=== PATIENT | female | born 1975 | race Hispanic/Latino ===

== ENCOUNTER 2019-10-12 13:32 | Emergency (ER) | payer MEDICAID ==
[2019-10-12 17:16] LABS: BASOPHILS % (AUTO) 0.5 % (0.0-5.0); EOSINOPHILS % (AUTO) 0.6 % (0.0-8.0); LYMPHOCYTES % (AUTO) 17.8 % (21.0-51.0); MEAN CORPUSCULAR HEMOGLOBIN 27.8 pg (27.0-33.0); MEAN CORPUSCULAR HGB CONC 32.6 g/dL (32.0-36.0); MEAN CORPUSCULAR VOLUME 85.3 fL (79-99); MONOCYTES % (AUTO) 5.7 % (3.0-13.0); NEUTROPHILS % (AUTO) 74.9 % (40.0-77.0); PLATELET COUNT (AUTO) 268 K/uL (130-400); RED BLOOD CELL COUNT(AUTO) 5.04 MIL/uL (4.00-5.50); WHITE BLOOD COUNT (AUTO) 8.8 K/uL (4.8-10.8)
[2019-10-12] MEDS ORDERED: ONDANSETRON HCL 4 MG/2 ML VIAL ONE (17:23)
[2019-10-12] MEDS ORDERED: KETOROLAC TROMETHAMINE 30MG/ML ONE (17:23)
[2019-10-12] MEDS ORDERED: SODIUM CHLORIDE 0.9% 1000ML 1,000 ML IV ONE (17:24)
[2019-10-12 17:43] LABS: CREATININE 0.6 mg/dL (0.5-1.5); POTASSIUM 4.5 mmol/L (3.5-5.1)
[2019-10-12 17:48] LABS: ALBUMIN 3.1 g/dL (3.5-5.0); BILIRUBIN,TOTAL 0.6 mg/dL (0.2-1.0); TOTAL PROTEIN, SERUM 8.2 g/dL (6.0-8.3)
[2019-10-12 17:57] LABS: APPEARANCE,URINE Clear (CLEAR); BILIRUBIN,URINE Negative (NEGATIVE); COLOR,URINE Yellow (YELLOW); GLUCOSE, URINE (UA) >=1000 mg/dL (NEGATIVE); KETONES,URINE >=160 mg/dL (NEGATIVE); LEUKOCYTE ESTERASE ,URINE Trace (NEGATIVE); NITRATE,URINE Negative (NEGATIVE); OCCULT BLOOD,URINE Negative (NEGATIVE); PROTEIN,URINE Negative (NEGATIVE)
[2019-10-12 17:59] LABS: HCG,QUAL RESULT NEGATIVE (NEGATIVE)
[2019-10-12 18:06] LABS: YEAST,URINE BUDDING Few /HPF (None Seen)
[2019-10-12 18:07] LABS: BACTERIA,URINE Few /HPF (None Seen); RBC,URINE None Seen /HPF (0-1)
[2019-10-12] MEDS ORDERED: CEFTRIAXONE SODIUM 1 GM ONE (18:30)
== END 2019-10-12 18:58 | disposition home or self-care (01) ==
LOC: EDH 13:32
DX: J32.9 Chronic sinusitis, unspecified (principal); E11.9 Type 2 diabetes mellitus without complications; I10 Essential (primary) hypertension; Z88.6 Allergy status to analgesic agent; Z98.51 Tubal ligation status; Z90.49 Acquired absence of other specified parts of digestive tract
CPT/HCPCS: 36415; 70450; 80053; 81001; 81025; 85025; 96374; 96375; 99284; J0696; J1885; J2405; J7030

== ENCOUNTER → 2021-05-26 | Outpatient (CLI) | payer MEDICAID | END | disposition home or self-care (01) | LOC: RAH 06:51 | PROVIDERS: ATTEND Internal Medicine Gastroenterology | DX: R14.0 Abdominal distension (gaseous) (principal); R68.81 Early satiety | CPT/HCPCS: 78264; A9541 ==

== ENCOUNTER 2021-09-17 10:56 | Emergency (ER) | payer MEDICAID ==
[~2021-09-17] VITALS: Ht 160 cm; Wt 106.1 kg
[2021-09-17 12:45] LABS: BASOPHILS % (AUTO) 0.7 % (0.0-5.0); EOSINOPHILS % (AUTO) 2.2 % (0.0-8.0); HEMATOCRIT 46.8 % (36-48); MEAN CORPUSCULAR HEMOGLOBIN 28.5 pg (27.0-33.0); MEAN CORPUSCULAR HGB CONC 32.7 g/dL (32.0-36.0); MEAN CORPUSCULAR VOLUME 87.2 fL (79-99); MONOCYTES % (AUTO) 5.7 % (3.0-13.0); PLATELET COUNT (AUTO) 190 K/uL (130-400); RED BLOOD CELL COUNT(AUTO) 5.37 MIL/uL (4.00-5.50); RED CELL DISTRIBUTION WIDTH 13.8 % (11.0-15.5); WHITE BLOOD COUNT (AUTO) 7.2 K/uL (4.8-10.8)
[2021-09-17 13:39] LABS: ALBUMIN 3.6 g/dL (3.5-5.0); BILIRUBIN,TOTAL 0.4 mg/dL (0.2-1.0); CREATININE 0.5 mg/dL (0.5-1.5); POTASSIUM 4.4 mmol/L (3.5-5.1); TOTAL PROTEIN, SERUM 7.7 g/dL (6.0-8.3)
[2021-09-17] MEDS ORDERED: DICYCLOMINE HCL 10 MG/5 ML ML PO ONE (14:00)
[2021-09-17] MEDS ORDERED: LIDOCAINE HCL 2% VISCOUS 15 ML UDCUP PO ONE (14:00)
[2021-09-17] MEDS ORDERED: MAG/ALUM/SIMETH 30 ML UDCUP PO ONE (14:00)
[2021-09-17] MEDS ORDERED: ESOM20CA60 PO (14:56)
[2021-09-17 15:02] VITALS: BP 134/70
== END 2021-09-17 15:30 | disposition home or self-care (01) ==
LOC: EDH 10:56
DX: K29.70 Gastritis, unspecified, without bleeding (principal); I11.0 Hypertensive heart disease with heart failure; E11.9 Type 2 diabetes mellitus without complications; E78.00 Pure hypercholesterolemia, unspecified; Z90.49 Acquired absence of other specified parts of digestive tract; Z98.51 Tubal ligation status
CPT/HCPCS: 36415; 80053; 83690; 84484; 85025

== ENCOUNTER 2022-05-01 17:17 | Emergency (ER) | payer MEDICAID ==
[~2022-05-01] VITALS: Ht 160 cm; Wt 109.3 kg
[~2022-05-01 17:17] MED LIST: ESOM20CA60 PO
[2022-05-01 17:46] LABS: BASOPHILS % (AUTO) 0.7 % (0.0-5.0); EOSINOPHILS % (AUTO) 1.6 % (0.0-8.0); HEMATOCRIT 45.6 % (36-48); LYMPHOCYTES % (AUTO) 33.2 % (21.0-51.0); MEAN CORPUSCULAR HEMOGLOBIN 28.7 pg (27.0-33.0); MEAN CORPUSCULAR HGB CONC 33.8 g/dL (32.0-36.0); MEAN CORPUSCULAR VOLUME 85.1 fL (79-99); MONOCYTES % (AUTO) 6.3 % (3.0-13.0); NEUTROPHILS % (AUTO) 57.9 % (40.0-77.0); PLATELET COUNT (AUTO) 200 K/uL (130-400); RED BLOOD CELL COUNT(AUTO) 5.36 MIL/uL (4.00-5.50); RED CELL DISTRIBUTION WIDTH 13.5 % (11.0-15.5); WHITE BLOOD COUNT (AUTO) 8.9 K/uL (4.8-10.8)
[2022-05-01 17:55] LABS: CREATININE 0.9 mg/dL (0.5-1.5); POTASSIUM 3.8 mmol/L (3.5-5.1)
[2022-05-01 17:57] LABS: APPEARANCE,URINE CLEAR (CLEAR); BILIRUBIN,URINE NEGATIVE (NEGATIVE); COLOR,URINE COLORLESS (YELLOW); GLUCOSE, URINE (UA) >=1000 mg/dL (NEGATIVE); KETONES,URINE NEGATIVE (NEGATIVE); LEUKOCYTE ESTERASE ,URINE NEGATIVE Leu/uL (NEGATIVE); NITRATE,URINE NEGATIVE (NEGATIVE); PROTEIN,URINE NEGATIVE (NEGATIVE); UROBILINOGEN,URINE 0.2 mg/dL (0.2-1.0)
[2022-05-01 17:59] LABS: BACTERIA,URINE RARE /HPF (None Seen); MUCUS,URINE RARE LPF (None Seen); SQUAMOUS EPITHELIAL CELL,UR RARE /HPF (0-2); WBC,URINE 0-1 /HPF (0-1)
[2022-05-01 18:00] LABS: ALBUMIN 3.5 g/dL (3.5-5.0); TOTAL PROTEIN, SERUM 7.7 g/dL (6.0-8.3)
[2022-05-01] MEDS ORDERED: IBUPROFEN 600 MG TABLET PO ONE (18:00)
[2022-05-01] MEDS ORDERED: INSULIN HUMULIN R 100 UNIT/ML 3ML IV ONE (18:30)
[2022-05-01] MEDS ORDERED: 0.9%NACL 1000ML 1,000 ML IV ONE (18:30)
[2022-05-01 19:23] VITALS: BP 155/85
[2022-05-01] MEDS ORDERED: ONDA4TAB10 PO (19:44)
== END 2022-05-01 20:37 | disposition home or self-care (01) ==
LOC: EDH 20:35
DX: R07.89 Other chest pain (principal); E11.65 Type 2 diabetes mellitus with hyperglycemia; E78.00 Pure hypercholesterolemia, unspecified; Z79.1 Long term (current) use of non-steroidal anti-inflammatories (NSAID); Z90.49 Acquired absence of other specified parts of digestive tract
CPT/HCPCS: 99285; 96374; 71045; 96361; 84484; 80053; 85025; 81001; 36415; 93005; J1815; J7030

== ENCOUNTER → 2022-05-15 | Outpatient (CLI) | payer MEDICAID ==
[~2022-05-15] MED LIST changes: +ONDA4TAB10 PO
[2022-05-15 12:51] LABS: ALBUMIN 3.5 g/dL (3.5-5.0); CREATININE 0.6 mg/dL (0.5-1.5); POTASSIUM 4.8 mmol/L (3.5-5.1); TOTAL PROTEIN, SERUM 7.4 g/dL (6.0-8.3)
== END | disposition home or self-care (01) ==
LOC: LAB 08:23
PROVIDERS: ATTEND Student in an Organized Health Care Education/Training Program
DX: R07.89 Other chest pain (principal)
CPT/HCPCS: 36415; 80053

== ENCOUNTER → 2022-05-16 | Outpatient (CLI) | payer MEDICAID ==
[~2022-05-16] MED LIST changes: +IOHEXOL 350 MG/ML 100ML INFUS..BTL IV ONE; +METOPROLOL TARTRATE 1 MG/ML 5ML VIAL IV ONE
== END | disposition home or self-care (01) ==
LOC: RAH 07:17
PROVIDERS: ATTEND Student in an Organized Health Care Education/Training Program
DX: I10 Essential (primary) hypertension (principal); R07.9 Chest pain, unspecified; M47.815 Spondylosis without myelopathy or radiculopathy, thoracolumbar region
CPT/HCPCS: 75574; J3490; Q9967

== ENCOUNTER → 2022-06-02 | Outpatient (CLI) | payer MEDICAID ==
[~2022-06-02] MED LIST changes: -IOHEXOL 350 MG/ML 100ML INFUS..BTL IV ONE; -METOPROLOL TARTRATE 1 MG/ML 5ML VIAL IV ONE
== END | disposition home or self-care (01) ==
LOC: SHCH 09:20
PROVIDERS: ATTEND Student in an Organized Health Care Education/Training Program
DX: R07.9 Chest pain, unspecified (principal)
CPT/HCPCS: 93306

== ENCOUNTER → 2023-02-13 | Outpatient (CLI) | payer MEDICAID | END | disposition home or self-care (01) | LOC: RAH 12:57 | PROVIDERS: ATTEND Student in an Organized Health Care Education/Training Program | DX: I70.213 Atherosclerosis of native arteries of extremities with intermittent claudication, bilateral legs (principal) | CPT/HCPCS: 93925 ==

== ENCOUNTER → 2023-03-05 | Outpatient (CLI) | payer MEDICAID | END | disposition home or self-care (01) | LOC: RAH 13:01 | PROVIDERS: ATTEND Student in an Organized Health Care Education/Training Program | DX: I82.811 Embolism and thrombosis of superficial veins of right lower extremity (principal) | CPT/HCPCS: 93971 ==

== ENCOUNTER → 2023-05-29 | Outpatient (CLI) | payer MEDICAID ==
[2023-05-29 14:02] LABS: CREATININE 0.8 mg/dL (0.5-1.5)
== END | disposition home or self-care (01) ==
LOC: LAB 13:25
PROVIDERS: ATTEND Internal Medicine Gastroenterology
DX: R10.32 Left lower quadrant pain (principal)
CPT/HCPCS: 36415; 82565; 84520

== ENCOUNTER → 2023-06-07 | Outpatient (CLI) | payer MEDICAID ==
[~2023-06-07] MED LIST changes: +IOHEXOL 350 MG/ML 100ML INFUS..BTL IV ONE
== END | disposition home or self-care (01) ==
LOC: RAH 08:43
PROVIDERS: ATTEND Internal Medicine Gastroenterology
DX: R10.32 Left lower quadrant pain (principal); Z90.49 Acquired absence of other specified parts of digestive tract
CPT/HCPCS: 74178; Q9967

== ENCOUNTER → 2023-07-08 | Emergency (ER) | payer MEDICAID ==
[~2023-07-08] VITALS: Ht 160 cm; Wt 103.0 kg
[~2023-07-08] MED LIST changes: -IOHEXOL 350 MG/ML 100ML INFUS..BTL IV ONE
[2023-07-08 21:09] VITALS: BP 161/80; PULSE 95; RESP 20
== END ==
LOC: EDH 18:37
DX: M79.662 Pain in left lower leg (principal); Z53.21 Procedure and treatment not carried out due to patient leaving prior to being seen by health care provider
CPT/HCPCS: 99281

== ENCOUNTER → 2024-02-21 | Outpatient (CLI) | payer MEDICAID ==
[~2024-02-21] MED LIST changes: +ONDA-243 PO; -ONDA4TAB10 PO
== END | disposition home or self-care (01) ==
LOC: RAH 14:49
PROVIDERS: ATTEND Nurse Practitioner Family
DX: R60.0 Localized edema (principal)
CPT/HCPCS: 93971

== ENCOUNTER → 2024-04-21 | Outpatient (CLI) | payer MEDICAID ==
[2024-04-21 12:40] LABS: CHOLESTEROL 209 mg/dL (<200); HDL CHOLESTEROL 67 mg/dL (35-85); LDL DIRECT 122 mg/dL (0-99); TRIGLYCERIDES 122 mg/dL (30-200)
[2024-04-21 12:47] LABS: HEMOGLOBIN A1C 9.8 % (4.0-6.0)
== END | disposition home or self-care (01) ==
LOC: LAB 09:11
PROVIDERS: ATTEND Student in an Organized Health Care Education/Training Program
DX: E78.5 Hyperlipidemia, unspecified (principal)
CPT/HCPCS: 36415; 80061; 83036

== ENCOUNTER 2024-10-19 05:53 | Day surgery (SDC) | payer MEDICAID ==
[2024-10-15 11:05] LABS: BASOPHILS # (AUTO) 0.06 K/uL (0.00-0.20); BASOPHILS % (AUTO) 0.9 % (0.0-5.0); EOSINOPHILS # (AUTO) 0.06 K/uL (0.00-0.70); EOSINOPHILS % (AUTO) 0.9 % (0.0-8.0); HEMATOCRIT 44.8 % (36-48); LYMPHOCYTES # (AUTO) 1.7 K/uL (1.0-4.8); MEAN CORPUSCULAR HEMOGLOBIN 29.7 pg (27.0-33.0); MEAN CORPUSCULAR HGB CONC 32.6 g/dL (32.0-36.0); MEAN CORPUSCULAR VOLUME 91.1 fL (79-99); MONOCYTES # (AUTO) 0.4 K/uL (0.1-1.0); MONOCYTES % (AUTO) 5.4 % (3.0-13.0); NEUTROPHILS # (AUTO) 4.4 K/uL (1.8-7.7); NEUTROPHILS % (AUTO) 66.3 % (40.0-77.0); PLATELET COUNT (AUTO) 190 K/uL (130-400); RED BLOOD CELL COUNT(AUTO) 4.92 MIL/uL (4.00-5.50); RED CELL DISTRIBUTION WIDTH 14.2 % (11.0-15.5); WHITE BLOOD COUNT (AUTO) 6.7 K/uL (4.8-10.8)
--- NOTE | 2024-10-15 11:08 | EKG ---
[facility] Test Date: 2024-10-15 Test Time: 10:51:12 Pat Name: MARIBELL GONZALEZ Department: [facility] Room: Gender: F Medical Administrator: [id number] : 1975 Requested By: JAI MCLEAN Order Number: [id number] Reading MD: Feliberto Tony Measurements Intervals Golden Rate: 92 P: 56 SD: 156 QRS: -10 QRSD: 92 T: 14 QT: 361 QTc: 446 Interpretive Statements Sinus rhythm Compared to ECG 05/01/2022 17:13:07 Sinus tachycardia no longer present Electronically Signed On 10-18-2024 18:29:35 CDT by Feliberto Tony Please click the below link to view image of tracing.
[2024-10-15 11:13] VITALS: BP 147/69; PULSE 97; RESP 19; TEMP 97.4
[2024-10-15 11:23] LABS: INR 1.09 (0.85-1.15); PROTHROMBIN TIME 11.5 SEC (9.6-11.6)
[2024-10-15 11:24] LABS: PARTIAL THROMBOPLASTIN TIME 30.2 SEC (26.3-35.5)
[2024-10-15 11:40] LABS: CREATININE 0.6 mg/dL (0.5-1.0); POTASSIUM 4.8 mmol/L (3.5-5.1)
[2024-10-15 11:46] LABS: APPEARANCE,URINE CLEAR (CLEAR); BILIRUBIN,URINE NEGATIVE (NEGATIVE); COLOR,URINE LIGHT-YELLOW (YELLOW); GLUCOSE, URINE (UA) >=1000 mg/dL (NEGATIVE); KETONES,URINE NEGATIVE (NEGATIVE); LEUKOCYTE ESTERASE ,URINE NEGATIVE Leu/uL (NEGATIVE); NITRATE,URINE NEGATIVE (NEGATIVE); PROTEIN,URINE NEGATIVE (NEGATIVE); UROBILINOGEN,URINE 0.2 mg/dL (0.2-1.0)
[2024-10-15 12:02] LABS: ADD UA MICROSCOPIC YES
--- NOTE | 2024-10-15 12:16 | HMCIMG ---
Exam Type: CHEST 1VW Clinical Information: PRE OP Comparison: None Findings: The lungs are clear of infiltrates. The heart is normal in size. The bony and soft tissue structures of the chest are unremarkable. Impression: Clear lungs.
[2024-10-15 12:24] LABS: BACTERIA,URINE RARE /HPF (None Seen); MUCUS,URINE RARE LPF (None Seen); OTHER CASTS, URINE 2 /LPF (None Seen); SQUAMOUS EPITHELIAL CELL,UR RARE /HPF (0-2)
[2024-10-15 12:31] LABS: B-TYPE NATRIURETIC PEPTIDE 21 pg/mL (0-100)
[~2024-10-19] VITALS: Ht 160 cm; Wt 111.4 kg
[2024-10-19] VITALS (9 sets, daily range): BP systolic 94–155; BP diastolic 52–64; PULSE 76–84; RESP 14–16; TEMP 97.2–97.4
[~2024-10-19 05:53] MED LIST changes: +ASPI-1443 PO; -ESOM20CA60 PO; +INSU3INS3 SQ; +LOSA25TA41 PO; -ONDA-243 PO; +PIOG30TA70 PO; +SEMA1PEN3 SQ; +SIMV-43 PO; +SITA100T12 PO
[2024-10-19] MEDS ORDERED: ESTR0.9T2 PO (07:01)
[2024-10-19] MEDS ORDERED: METH-811 PO (07:01)
[2024-10-19] MEDS ORDERED: FAMO20TA8 PO (07:01)
[2024-10-19] MEDS: 0.9%NACL 1000ML 1,000 ML IV SCH (07:05)
[2024-10-19] MEDS ORDERED: LIDOCAINE HCL 400MG/20ML VIAL ONE (07:14)
[2024-10-19] MEDS ORDERED: HEParin 10,000 UNIT/10ML (1,000 UNIT/ML) VIAL ONE (07:14)
[2024-10-19] MEDS ORDERED: IODIXANOL 320 MG/ML 100 ML VIAL ONE (07:14)
[2024-10-19] MEDS ORDERED: HEParin-NS 1,000 UNIT/500 ML 1,000 ML IV ONE (07:15)
[2024-10-19] MEDS ORDERED: NITROGLYCERIN 50MG VIAL ONE (07:15)
[2024-10-19] MEDS ORDERED: FENTanyl CITRate PF 50 MCG/1 ML 2ML VIAL ONE (07:37)
[2024-10-19] MEDS ORDERED: MIDAZOLAM HCL 1 MG/ML 2ML VIAL ONE ×2 (07:37→07:59)
[2024-10-19] MEDS ORDERED: DEXTROSE 50%-WATER 50 ML DISP.SYRIN IV PRN (08:30)
[2024-10-19] MEDS ORDERED: GLUCAGON 1MG KIT 1 MG ML IM PRN (08:30)
--- NOTE | 2024-10-19 08:42 | PRN ---
PERIPHERAL ANGIOGRAM: SWITCH MAKER: Jai Santamaria MD DATE: 10/19/2024 INDICATION: R great toe ulcer Claudication Abnormal arterial lower extremity Dopplers. PROCEDURE: Conscious sedation Ultrasound-guided left common femoral arterial access Left selective iliofemoral angiogram Abdominal aortogram Catheter placement in the right common femoral artery Selective right lower extremity angiogram with runoff Left lower extremity angiogram with runoff Perclose hemostasis the left common femoral artery PROCEDURE DETAILS: Following informed consent the patient was taken to the golf course laborer in the fasting state condition where she was draped in sterile I's and usual fashion. Access was obtained via the left common femoral artery under ultrasound guidance with the 1st fall past puncture. We then placed a six Arabic arterial sheath in left common femoral artery which was an aspirated and flushed. We then performed a limited left iliofemoral angiogram to delineate her anatomy. We then advanced in 035 wire into the ascending aorta and fluoroscopic guidance and then advanced a five Arabic omni catheter over the wire and performed an abdominal aortogram. We then advanced the Omni catheter into the right common femoral artery and performed a selective right lower extremity angiogram with runoff. Four on review of these images we retracted the Omni catheter from the body and performed a left lower extremity angiogram with runoff under DSA images. Following review of all the images suture was made to terminate the procedure. We deployed a six Arabic Perclose the left common femoral artery which did not obtain patent hemostasis so we deployed manual pressure for approximately 20-25 minutes with hemostasis. Patient tolerated procedure well with no postprocedural complications transfer calf five holding in stable condition FINDINGS: Abdominal aorta is widely patent LEFT: Common iliac is patent External iliac is patent Internal iliac is patent PICKING SUPERVISOR artery is patent Profunda artery is patent Superficial femoral artery is widely patent Popliteal artery is widely patent Anterior tibial is patent with sluggish flow to the mid calf (unable to visualize flow distally due to sluggish flow rather than obstruction) Tibioperoneal trunk patent with sluggish flow Peroneal artery has very sluggish flow in his patent to the foot Posterior tibial artery has very sluggish flow and is patent to the mid calf with no obstructive disease RIGHT: Common iliac is patent External iliac is patent Internal iliac is patent PICKING SUPERVISOR artery is patent Profunda artery is patent Superficial femoral artery is widely patent Popliteal artery is widely patent Anterior tibial is patent with sluggish flow with no obstructive disease Tibioperoneal trunk patent with sluggish flow Peroneal artery has very sluggish flow in his patent to the foot Posterior tibial artery has very sluggish flow and is patent to the mid calf with no obstructive disease CONCLUSION: No occlusive obstructive disease of the bilateral lower extremities She has significant microvascular disease likely due to her underlying uncontrolled type 2 diabetes RECOMMENDATION: Diet/exercise and tight glycemic control Continue aspirin 81 mg q.day and Lipitor 40 mg q.h.s. Follow up in cardiology clinic 1-2 weeks post discharge JAI Linda MD, MD Oct 19, 2024 08:42
--- NOTE | 2024-10-19 12:25 | NUR ---
PT BEING DISCHARGED HOME. VSS NAD. RIGHT FEMORAL SITE ASSESSED 1 MORE TIME "ASYMPTOMATIC". PT DID FEEL RIGHT GROIN PRIOR TO DISCHARGE AND INSTRUCTED HER SITE SHOULD BE SOFT NON TENDER NO BLEEDING
== END 2024-10-19 12:25 | disposition home or self-care (01) ==
LOC: DAH 05:53
PROVIDERS: ATTEND Student in an Organized Health Care Education/Training Program
DX: E11.51 Type 2 diabetes mellitus with diabetic peripheral angiopathy without gangrene (principal); R93.6 Abnormal findings on diagnostic imaging of limbs; L97.518 Non-pressure chronic ulcer of other part of right foot with other specified severity; I10 Essential (primary) hypertension; E78.5 Hyperlipidemia, unspecified; E66.01 Morbid (severe) obesity due to excess calories; Z88.8 Allergy status to other drugs, medicaments and biological substances; Z68.41 Body mass index [BMI] 40.0-44.9, adult; Z79.4 Long term (current) use of insulin; Z79.01 Long term (current) use of anticoagulants; Z79.82 Long term (current) use of aspirin; Z79.899 Other long term (current) drug therapy
CPT/HCPCS: 80048; 83880; 85025; 85610; 85730; 81001; 36415; 71045; 93005; 75625; 36246; 75716; 82948; C1894 ×2; C1760; C1769; J3010; J3490 ×2; J7030; J2250 ×2; J1644; Q9967; A4215; A4222; A4221; A4663; A4216; A4606; A4223 ×3; 75630; 99156; 99157